=== PATIENT | female | born 1940 ===

== ENCOUNTER 2022-05-29 06:00 | Outpatient (RCR) | payer OTHER, SELFPAY | END 2022-06-28 23:59 | disposition home or self-care (01) | LOC: GPT 06:00 | PROVIDERS: Family Provider Surgery Plastic and Reconstructive Surgery; PCP Surgery Plastic and Reconstructive Surgery; Visit Provider Nurse Practitioner | DX: M35.3 Polymyalgia rheumatica (principal); M17.11 Unilateral primary osteoarthritis, right knee; M79.606 Pain in leg, unspecified | CPT/HCPCS: 97110; 97112; 97140; 97162 ==